=== PATIENT | female | born 1985 | race Caucasian/White ===

== ENCOUNTER → 2023-08-30 16:50 | Outpatient (REF) | payer BC, SELFPAY | LOC: RAD 16:50 | PROVIDERS: ATTENDING PHYSICIAN Obstetrics & Gynecology; FAMILY PHYSICIAN Family Medicine | DX: I82.90 Acute embolism and thrombosis of unspecified vein (principal) | CPT/HCPCS: 93971 ==

== ENCOUNTER → 2023-09-20 14:51 | Outpatient (REF) | payer BC, SELFPAY | LOC: PNTC 14:51 | PROVIDERS: ATTENDING PHYSICIAN Obstetrics & Gynecology | DX: O99.210 Obesity complicating pregnancy, unspecified trimester (principal) | CPT/HCPCS: 59025; 76801; 76813 ==

== ENCOUNTER → 2023-10-05 14:34 | Outpatient (REF) | payer BC, SELFPAY | LOC: PNTC 14:34 | PROVIDERS: ATTENDING PHYSICIAN Obstetrics & Gynecology | DX: O09.529 Supervision of elderly multigravida, unspecified trimester (principal); O22.30 Deep phlebothrombosis in pregnancy, unspecified trimester | CPT/HCPCS: 76805 ==

== ENCOUNTER → 2023-11-03 15:35 | Outpatient (REF) | payer BC, SELFPAY | LOC: PNTC 15:35 | PROVIDERS: ATTENDING PHYSICIAN Obstetrics & Gynecology | DX: O09.529 Supervision of elderly multigravida, unspecified trimester (principal); O22.30 Deep phlebothrombosis in pregnancy, unspecified trimester | CPT/HCPCS: 76811 ==

== ENCOUNTER → 2023-12-16 11:21 | Outpatient (REF) | payer BC, SELFPAY | LOC: PNTC 11:21 | PROVIDERS: ATTENDING PHYSICIAN Obstetrics & Gynecology | DX: O99.210 Obesity complicating pregnancy, unspecified trimester (principal); O22.30 Deep phlebothrombosis in pregnancy, unspecified trimester | CPT/HCPCS: 76816 ==

== ENCOUNTER → 2024-02-10 10:28 | Outpatient (REF) | payer BC, SELFPAY | LOC: PNTC 10:28 | PROVIDERS: ATTENDING PHYSICIAN Obstetrics & Gynecology | DX: O99.210 Obesity complicating pregnancy, unspecified trimester (principal); O09.519 Supervision of elderly primigravida, unspecified trimester | CPT/HCPCS: 59025; 76815 ==

== ENCOUNTER → 2024-02-17 10:31 | Outpatient (REF) | payer BC, SELFPAY | LOC: PNTC 10:31 | PROVIDERS: ATTENDING PHYSICIAN Obstetrics & Gynecology | DX: O99.210 Obesity complicating pregnancy, unspecified trimester (principal); O09.519 Supervision of elderly primigravida, unspecified trimester | CPT/HCPCS: 59025; 76816 ==

== ENCOUNTER → 2024-02-22 13:41 | Outpatient (REF) | payer BC, SELFPAY | LOC: PNTC 13:41 | PROVIDERS: ATTENDING PHYSICIAN Obstetrics & Gynecology | DX: O09.519 Supervision of elderly primigravida, unspecified trimester (principal); O99.210 Obesity complicating pregnancy, unspecified trimester; Z29.13 Encounter for prophylactic Rho(D) immune globulin | CPT/HCPCS: 36415; 59025; 76816; 86850; 86900; 86901; J2790 ==

== ENCOUNTER 2024-02-24 15:16 | Observation (INO) | payer BC, SELFPAY ==
[2024-02-24 15:31] VITALS: BP 110/55; BMI 35.3
[2024-02-24 16:27] LABS: % Basophils 0.3 % (0-2); % Eosinophils 0.2 % (0-6); % Immature Granulocytes 0.3 % (0-0.5); % Lymphocytes 4.3 % (20.5-51.1); % Neutrophils 91.9 % (42.2-75.2); Absolute Lymphocytes 0.5 10^3/uL (1.2-3.4); Absolute Monocytes 0.3 10^3/uL (0.1-0.6); Absolute Neutrophils 9.6 10^3/uL (1.4-6.5); Hematocrit 33.8 % (37.0-47.0); Hemoglobin 11.6 g/dL (12.0-16.0); Mean Corp Hgb Conc. 34.3 g/dL (33.0-37.0); Mean Corpuscular Volume 81.4 fL (81.0-99.0); Mean Platelet Volume 10.2 fL (7.4-10.4); Nucleated Red Blood Cells % 0 %; Platelet Count 191 10^3/uL (130-400); Red Blood Cell Count 4.15 10^6/uL (4.20-5.40); Red Cell Dist. Width 14.6 % (11.5-14.5); White Blood Cell Count 10.5 10^3/uL (4.8-10.8)
[2024-02-24] MEDS: HYPERRHO S-D 1500 UNIT IM (17:06)
[2024-02-24 17:18] LABS: Urine Albumin Negative (Neg - Trace); Urine Bilirubin Negative (Negative); Urine Character Slightly Cloudy (Clear); Urine Color Yellow; Urine Glucose Negative (Negative); Urine Ketone 2+ (Negative); Urine Leukocyte Negative (Negative); Urine Nitrite Negative (Negative); Urine Occult Blood 2+ (Negative); Urine Urobilinogen Negative (Neg - 1+)
[2024-02-24 17:24] LABS: Urine Bacteria Few (Negative); Urine Red Blood Cell 0-2 /HPF (0-2); Urine Squamous Cell >30 /LPF (Few); Urine White Cell 0-2 /HPF (0-5)
[2024-02-24] MEDS: CELESTONE SOLUSPAN 2 MG IM (17:53)
== END 2024-02-24 18:31 | disposition home or self-care (01) ==
LOC: LDRP 15:16
PROVIDERS: ADMITTING PHYSICIAN Obstetrics & Gynecology
DX: O40.3XX0 Polyhydramnios, third trimester, not applicable or unspecified (principal); O09.523 Supervision of elderly multigravida, third trimester; O28.8 Other abnormal findings on antenatal screening of mother; Z3A.36 36 weeks gestation of pregnancy; O99.213 Obesity complicating pregnancy, third trimester; O32.1XX0 Maternal care for breech presentation, not applicable or unspecified; O99.283 Endocrine, nutritional and metabolic diseases complicating pregnancy, third trimester; E03.9 Hypothyroidism, unspecified; Z86.718 Personal history of other venous thrombosis and embolism
CPT/HCPCS: 96372; 90384; 76818; 81003; 81015; 85025; 86850; 86900; 86901; G0378

== ENCOUNTER → 2024-02-25 14:16 | Outpatient (REF) | payer BC, SELFPAY | LOC: RAD 14:16 | PROVIDERS: ATTENDING PHYSICIAN Internal Medicine Hematology & Oncology | DX: I82.91 Chronic embolism and thrombosis of unspecified vein (principal); O22.21 Superficial thrombophlebitis in pregnancy, first trimester | CPT/HCPCS: 93971 ==

== ENCOUNTER 2024-03-07 09:20 | Observation (INO) | payer BC, SELFPAY ==
[2024-03-07 09:47] VITALS: BMI 35.3
[2024-03-07] MEDS: BRETHINE 250 MCG SC (10:03)
[2024-03-07 10:14] VITALS: BP 113/62
[2024-03-07 10:21] LABS: Hematocrit 33.7 % (37.0-47.0); Hemoglobin 11.6 g/dL (12.0-16.0); Mean Corp Hgb Conc. 34.4 g/dL (33.0-37.0); Mean Corpuscular Hgb 27.9 pg (27.0-31.0); Mean Platelet Volume 9.7 fL (7.4-10.4); Platelet Count 226 10^3/uL (130-400); Red Blood Cell Count 4.16 10^6/uL (4.20-5.40); Red Cell Dist. Width 15.1 % (11.5-14.5); White Blood Cell Count 6.8 10^3/uL (4.8-10.8)
== END 2024-03-07 11:28 | disposition home or self-care (01) ==
LOC: LDRP 09:20
PROVIDERS: ADMITTING PHYSICIAN Obstetrics & Gynecology
DX: O32.1XX0 Maternal care for breech presentation, not applicable or unspecified (principal); Z3A.38 38 weeks gestation of pregnancy; O99.283 Endocrine, nutritional and metabolic diseases complicating pregnancy, third trimester; E03.9 Hypothyroidism, unspecified; O09.523 Supervision of elderly multigravida, third trimester; O40.3XX0 Polyhydramnios, third trimester, not applicable or unspecified
CPT/HCPCS: 59412; 76815; 85027; 86850; 86870; 86900; 86901; G0378

== ENCOUNTER 2024-03-14 06:17 | Inpatient (IN) | payer BC, SELFPAY ==
[2024-03-14 06:44] VITALS: BP 129/70; BMI 35.3
[2024-03-14] MEDS: TYLENOL 1000 MG PO (07:24)
[2024-03-14] MEDS: BICITRA 30 ML PO (07:25)
[2024-03-14 07:33] LABS: Hematocrit 33.5 % (37.0-47.0); Hemoglobin 11.6 g/dL (12.0-16.0); Mean Corp Hgb Conc. 34.6 g/dL (33.0-37.0); Mean Corpuscular Volume 80.9 fL (81.0-99.0); Mean Platelet Volume 10.1 fL (7.4-10.4); Platelet Count 249 10^3/uL (130-400); Red Blood Cell Count 4.14 10^6/uL (4.20-5.40); Red Cell Dist. Width 15.4 % (11.5-14.5); White Blood Cell Count 7.6 10^3/uL (4.8-10.8)
[2024-03-14] MEDS: PITOCIN 30 UNITS/NSS 500 ML IV (08:50)
[2024-03-14] MEDS: LR 1000 IV (08:54)
[2024-03-14 09:37] LABS: Hepatitis B Surface Antigen Negative (Negative)
[2024-03-14 09:56] LABS: HIV Combo Negative (Negative)
[2024-03-14 10:03] LABS: Hepatitis C Antibody Negative (Negative)
[2024-03-14] MEDS: SUBLIMAZE 100 MCG EPIDURAL (14:31)
[2024-03-14] MEDS: FENTANYL/BUPIVACAINE 100 EPIDURAL ×2 (14:31→21:49)
[2024-03-15] MEDS: MOTRIN 600 MG PO ×4 (00:44→19:59)
--- NOTE | 2024-03-15 03:08 | DOWNTIME ---
There was a [employer] [place] [employer] Downtime on 03/15/2024 from 0100 to 03/15/2024 at 0252. Downtime documentation of patient's care, including medication administrations, has been reconciled in the electronic record per guidelines. Refer to the
patient's paper chart under the miscellaneous tab to see printed paper medication records and downtime forms.
[2024-03-15] MEDS: SYNTHROID 137 MCG PO (05:53)
[2024-03-15 05:57] LABS: Hematocrit 30.6 % (37.0-47.0); Hemoglobin 10.5 g/dL (12.0-16.0)
[2024-03-15] MEDS: SENOKOT-S 1 TABLET PO (05:58)
[2024-03-15] MEDS: LOVENOX 40 MG SC (07:49)
[2024-03-15] MEDS: PRENATAL PLUS 1 TABLET PO (07:58)
[2024-03-15] MEDS: TYLENOL 650 MG PO ×2 (13:40→19:58)
[2024-03-15] MEDS: HYPERRHO S-D 1500 UNIT IM (19:56)
[2024-03-16] MEDS: SYNTHROID 137 MCG PO (05:55)
[2024-03-16] MEDS: MOTRIN 600 MG PO (06:01)
[2024-03-16] MEDS: TYLENOL 650 MG PO (06:02)
[2024-03-16] MEDS: LOVENOX 40 MG SC (07:46)
[2024-03-16] MEDS: PRENATAL PLUS 1 TABLET PO (07:46)
[2024-03-17 11:12] LABS: Syphilis/T. pallidum Ab Reflex Negative (Negative)
== END 2024-03-16 12:51 | disposition home or self-care (01) | DRG 807 ==
LOC: LDRP 06:17
PROVIDERS: ADMITTING PHYSICIAN Obstetrics & Gynecology
PROC: 4A1HXCZ Monitoring of Products of Conception, Cardiac Rate, External Approach (ICD-10-PCS; 2024-03-14)
PROC: 10E0XZZ Delivery of Products of Conception, External Approach (ICD-10-PCS; 2024-03-14)
PROC: 0HQ9XZZ Repair Perineum Skin, External Approach (ICD-10-PCS; 2024-03-14)
PROC: 3E033VJ Introduction of Other Hormone into Peripheral Vein, Percutaneous Approach (ICD-10-PCS; 2024-03-14)
DX: O99.284 Endocrine, nutritional and metabolic diseases complicating childbirth (principal); Z37.0 Single live birth; O70.0 First degree perineal laceration during delivery; E03.9 Hypothyroidism, unspecified; E78.00 Pure hypercholesterolemia, unspecified; O40.3XX0 Polyhydramnios, third trimester, not applicable or unspecified; O87.4 Varicose veins of lower extremity in the puerperium; I83.90 Asymptomatic varicose veins of unspecified lower extremity; Z3A.39 39 weeks gestation of pregnancy; Z86.718 Personal history of other venous thrombosis and embolism; Z79.890 Hormone replacement therapy; Z79.01 Long term (current) use of anticoagulants
CPT/HCPCS: 88307; 85014; 85018; 85027; 85461; 86780; 86803; 86850; 86870; 86900; 86901; 87340; 87389; J2790